=== PATIENT | female | born 1940 | race African-American/Black ===

== ENCOUNTER 2019-10-04 17:58 | Inpatient (IN) | payer MEDICARE, MEDICAID ==
[~2019-10-04] VITALS: Ht 167.6 cm; Wt 94.6 kg
[~2019-10-04 17:58] MED LIST: AGG25C; ALLO100T; ATEN50TA; CAPT25TA5; EZET10TA20; FELO5TAB3; FURO40TA4; OMEP20TA30
[2019-10-04] MEDS ORDERED: SODIUM CHLORIDE 0.9% 1,000 ML IV ONE (18:40)
[2019-10-04] MEDS ORDERED: VANCOMYCIN PER PHARMACY 1,000 MG IV SCH (18:45)
[2019-10-04 19:14] LABS: Basophils # (auto) 0 uL; Basophils % (auto) 0.3 % (0.0-2.0); Eosinophils # (auto) 0 uL; Hematocrit 40.5 % (36.0-46.0); Lymphocytes # (auto) 0.6 uL; Lymphocytes % (auto) 5.7 % (10.0-50.0); Mean Corpuscular Hemoglobin 29.3 pg (28.0-32.0); Mean Corpuscular Hgb Conc. 32.1 g/dL (32.0-36.0); Mean Corpuscular Volume 91.4 fL (80.0-100.0); Monocytes # (auto) 0.5 uL; Monocytes % (auto) 4.9 % (0.0-12.0); Neutrophils # (auto) 8.9 uL; Neutrophils % (auto) 89.1 % (37.0-80.0); Nucleated Red Blood Cells % 0.7 %; Platelet Count (auto) 261 10^3/uL (140-450); Red Blood Cells 4.43 10^6/uL (4.0-5.20); Red Cell Distribution Width 17.1 % (11.8-14.3)
[2019-10-04] MEDS ORDERED: VANCOMYCIN 1GM/250ML 250 ML IV ONE (19:15)
[2019-10-04 19:31] LABS: Albumin 2.1 g/dL (3.4-5.0); Calcium 9.5 mg/dL (8.5-10.1); Potassium 5.1 mmol/L (3.5-5.1)
[2019-10-04 19:34] LABS: Lactic Acid w/Reflex 2.1 mmol/L (0.4-2.0)
[2019-10-04 19:35] LABS: BUN/Creatinine Ratio 19.8; Bilirubin, Total 0.4 mg/dL (0.2-1.0); Total Protein 7.7 g/dL (6.4-8.2)
[2019-10-04 20:40] LABS: INR 1.23 (0.9-1.15)
[2019-10-04 20:41] LABS: Partial Thromboplastin Time 31.1 sec (23.64-32.05)
[2019-10-04 20:56] LABS: Urine Bacteria FEW /hpf (None Seen); Urine Blood 2+ /uL (Negative); Urine Hyaline Cast MANY /lpf (0 - 2); Urine Mucus FEW (None Seen); Urine Specific Gravity 1.023 (1.001-1.035); Urine WBC 215 /hpf (0 - 5); Urine WBC Clumps PRESENT /hpf (None Seen)
[2019-10-04] MEDS ORDERED: cefTRIAXone 1GM/50ML D5W 50 ML IV SCH (21:00)
[2019-10-04] MEDS ORDERED: ENOXAPARIN SOD 60 MG/0.6 ML SYRINGE SC ONE (22:30)
[2019-10-04] MEDS ORDERED: ALBUMIN 5% 250 ML IV ONE (22:30)
[2019-10-04] MEDS ORDERED: ONDANSETRON HCL 4 MG/2 ML VIAL IV PRN (22:30)
[2019-10-04] MEDS ORDERED: ALBUTEROL SULF 2.5 MG/0.5ML(0.5%) NEB SOLN NEB PRN (22:30)
[2019-10-04] MEDS ORDERED: ACETAMINOPHEN 325 MG TAB PO PRN (22:30)
[2019-10-04] MEDS ORDERED: SODIUM CHLORIDE 0.9% 1,000 ML IV SCH (22:30)
[2019-10-04] MEDS ORDERED: MORPHINE SULF INJ 2 MG/ML SYRINGE 1ML IV PRN (22:45)
[2019-10-04] MEDS ORDERED: NITROGLYCERIN 0.4 MG SL TAB SL PRN (22:45)
[2019-10-04 23:19] VITALS: BP 111/72
[2019-10-05] VITALS (7 sets, daily range): BP systolic 94–131; BP diastolic 60–92
[2019-10-05] MEDS ORDERED: PIPERACILLIN-TAZOB 3.375GM 100 ML IV SCH
[2019-10-05 05:24] LABS: Basophils # (auto) 0 uL; Basophils % (auto) 0.1 % (0.0-2.0); Eosinophils # (auto) 0 uL; Eosinophils % (auto) 0.1 % (0.0-7.0); Hematocrit 35.2 % (36.0-46.0); Hemoglobin 11.3 g/dL (12.2-16.2); Lymphocytes # (auto) 0.7 uL; Lymphocytes % (auto) 7.1 % (10.0-50.0); Mean Corpuscular Hemoglobin 29.1 pg (28.0-32.0); Mean Corpuscular Hgb Conc. 32.1 g/dL (32.0-36.0); Mean Corpuscular Volume 90.5 fL (80.0-100.0); Monocytes # (auto) 0.3 uL; Monocytes % (auto) 2.8 % (0.0-12.0); Neutrophils # (auto) 8.6 uL; Neutrophils % (auto) 89.9 % (37.0-80.0); Nucleated Red Blood Cells % 0.7 %; Platelet Count (auto) 212 10^3/uL (140-450); Red Blood Cells 3.89 10^6/uL (4.0-5.20); Red Cell Distribution Width 17.4 % (11.8-14.3); White Blood Cell 9.6 10^3/uL (4.4-10.8)
[2019-10-05 05:48] LABS: BUN/Creatinine Ratio 21.2; Potassium 4.7 mmol/L (3.5-5.1)
[2019-10-05] MEDS: cefTRIAXone 1GM/50ML D5W 50 ML IV SCH (08:58)
[2019-10-05] MEDS ORDERED: FUROSEMIDE 20 MG/2 ML VIAL IV ONE (09:00)
[2019-10-05] MEDS ORDERED: PANTOPRAZOLE 40 MG TAB PO SCH (10:00)
[2019-10-05] MEDS: ENOXAPARIN SOD 100 MG/1 ML SYRINGE SC SCH (10:18)
[2019-10-05] MEDS: AZITHROMYCIN 500MG/ 250ML 250 ML IV SCH (10:18)
[2019-10-05] MEDS ORDERED: PANTOPRAZOLE 40 MG/10 ML VIAL INJ IV SCH (10:45)
[2019-10-05] MEDS ORDERED: VANCOMYCIN 1GM/250ML 250 ML IV ONE (12:00)
[2019-10-05] MEDS: SODIUM CHLORIDE 0.9% 1,000 ML IV SCH (12:53)
[2019-10-05 13:46] LABS: Folate (Folic Acid) 6.98 ng/mL (5.38-24)
[2019-10-05] MEDS ORDERED: FUROSEMIDE 40 MG/4 ML VIAL IV SCH (18:00)
[2019-10-06 05:00] VITALS: BP 112/75
[2019-10-06 06:58] LABS: Basophils # (auto) 0 uL; Basophils % (auto) 0.2 % (0.0-2.0); Eosinophils # (auto) 0.2 uL; Eosinophils % (auto) 2.2 % (0.0-7.0); Hematocrit 33.7 % (36.0-46.0); Hemoglobin 10.9 g/dL (12.2-16.2); Lymphocytes # (auto) 0.5 uL; Lymphocytes % (auto) 4.5 % (10.0-50.0); Mean Corpuscular Hemoglobin 29.5 pg (28.0-32.0); Mean Corpuscular Hgb Conc. 32.3 g/dL (32.0-36.0); Mean Corpuscular Volume 91.5 fL (80.0-100.0); Monocytes # (auto) 0.2 uL; Monocytes % (auto) 2.3 % (0.0-12.0); Neutrophils # (auto) 9.7 uL; Neutrophils % (auto) 90.8 % (37.0-80.0); Nucleated Red Blood Cells % 0.4 %; Platelet Count (auto) 180 10^3/uL (140-450); Red Blood Cells 3.68 10^6/uL (4.0-5.20); Red Cell Distribution Width 17.5 % (11.8-14.3); White Blood Cell 10.7 10^3/uL (4.4-10.8)
[2019-10-06 07:24] LABS: BUN/Creatinine Ratio 25.2; Calcium 8.7 mg/dL (8.5-10.1); Magnesium 2.3 mg/dL (1.6-2.6); Potassium 4.4 mmol/L (3.5-5.1)
[2019-10-06] MEDS: cefTRIAXone 1GM/50ML D5W 50 ML IV SCH (08:48)
[2019-10-06 09:00] VITALS: BP 121/64
[2019-10-06] MEDS: ASPirin-EC 81 mg tab PO SCH (09:47)
[2019-10-06] MEDS: ENOXAPARIN SOD 100 MG/1 ML SYRINGE SC SCH (09:47)
[2019-10-06] MEDS: PANTOPRAZOLE 40 MG/10 ML VIAL INJ IV SCH ×2 (09:47→23:12)
[2019-10-06] MEDS: AZITHROMYCIN 500MG/ 250ML 250 ML IV SCH (09:48)
[2019-10-06] MEDS ORDERED: SENNA 8.6 MG TAB PO ONE (11:45)
[2019-10-06 12:38] VITALS: BP 125/74
[2019-10-06 17:00] VITALS: BP 120/72
[2019-10-06] MEDS: SODIUM CHLORIDE 0.9% 1,000 ML IV SCH (18:37)
[2019-10-06 22:00] VITALS: BP 125/73
[2019-10-06] MEDS ORDERED: VANCOMYCIN 1GM/250ML 250 ML IV ONE (22:52)
[2019-10-06] MEDS ORDERED: VANCOMYCIN 500 MG in D5W 5% 100 ML IV ONE (23:00)
[2019-10-06] MEDS: ATORVASTATIN 20 MG TAB PO SCH (23:13)
[2019-10-06] MEDS: SENNA 8.6 MG TAB PO SCH (23:13)
[2019-10-07] MEDS: SODIUM CHLORIDE 0.9% 1,000 ML IV SCH (04:43)
[2019-10-07 05:00] VITALS: BP 118/71
[2019-10-07 07:27] LABS: Basophils # (auto) 0 uL; Basophils % (auto) 0.4 % (0.0-2.0); Eosinophils # (auto) 0.3 uL; Eosinophils % (auto) 2.4 % (0.0-7.0); Hematocrit 34.5 % (36.0-46.0); Lymphocytes # (auto) 0.9 uL; Lymphocytes % (auto) 8.2 % (10.0-50.0); Mean Corpuscular Hemoglobin 29.3 pg (28.0-32.0); Mean Corpuscular Hgb Conc. 31.9 g/dL (32.0-36.0); Mean Corpuscular Volume 91.8 fL (80.0-100.0); Monocytes # (auto) 0.4 uL; Monocytes % (auto) 3.3 % (0.0-12.0); Neutrophils # (auto) 9.1 uL; Neutrophils % (auto) 85.7 % (37.0-80.0); Platelet Count (auto) 210 10^3/uL (140-450); Red Blood Cells 3.76 10^6/uL (4.0-5.20); Red Cell Distribution Width 17.1 % (11.8-14.3); White Blood Cell 10.7 10^3/uL (4.4-10.8)
[2019-10-07 07:43] LABS: BUN/Creatinine Ratio 28.2; Calcium 8.8 mg/dL (8.5-10.1); Potassium 3.9 mmol/L (3.5-5.1)
[2019-10-07 09:00] VITALS: BP 109/72
[2019-10-07] MEDS: cefTRIAXone 1GM/50ML D5W 50 ML IV SCH (09:42)
[2019-10-07] MEDS: AZITHROMYCIN 500MG/ 250ML 250 ML IV SCH (10:32)
[2019-10-07] MEDS: ASPirin-EC 81 mg tab PO SCH (10:32)
[2019-10-07] MEDS: PANTOPRAZOLE 40 MG/10 ML VIAL INJ IV SCH ×2 (10:32→23:12)
[2019-10-07] MEDS: ENOXAPARIN SOD 100 MG/1 ML SYRINGE SC SCH (10:35)
[2019-10-07 13:00] VITALS: BP 136/82
[2019-10-07] MEDS ORDERED: ALBUMIN 25% 100 ML IV ONE (13:30)
[2019-10-07 17:00] VITALS: BP 109/69
[2019-10-07 23:08] VITALS: BP 114/63
[2019-10-07] MEDS: ATORVASTATIN 20 MG TAB PO SCH (23:12)
[2019-10-07] MEDS: SENNA 8.6 MG TAB PO SCH (23:13)
[2019-10-08] MEDS: SODIUM CHLORIDE 0.9% 1,000 ML IV SCH (00:45)
[2019-10-08 05:26] VITALS: BP 113/58
[2019-10-08 06:06] LABS: Basophils # (auto) 0 uL; Basophils % (auto) 0.2 % (0.0-2.0); Eosinophils # (auto) 0.3 uL; Eosinophils % (auto) 2.6 % (0.0-7.0); Hematocrit 30.4 % (36.0-46.0); Hemoglobin 9.5 g/dL (12.2-16.2); Lymphocytes # (auto) 1.2 uL; Lymphocytes % (auto) 12.4 % (10.0-50.0); Mean Corpuscular Hemoglobin 28.3 pg (28.0-32.0); Mean Corpuscular Hgb Conc. 31.3 g/dL (32.0-36.0); Mean Corpuscular Volume 90.5 fL (80.0-100.0); Monocytes # (auto) 0.5 uL; Neutrophils # (auto) 7.9 uL; Neutrophils % (auto) 79.8 % (37.0-80.0); Nucleated Red Blood Cells % 0.7 %; Platelet Count (auto) 195 10^3/uL (140-450); Red Blood Cells 3.36 10^6/uL (4.0-5.20); Red Cell Distribution Width 17.1 % (11.8-14.3); White Blood Cell 9.9 10^3/uL (4.4-10.8)
[2019-10-08 06:17] LABS: Potassium 3.3 mmol/L (3.5-5.1)
[2019-10-08 06:26] LABS: BUN/Creatinine Ratio 32.3; Calcium 8.8 mg/dL (8.5-10.1)
[2019-10-08] MEDS ORDERED: SOD CHL 0.45% 1,000 ML IV SCH (08:45)
[2019-10-08] MEDS ORDERED: POTASSIUM CHLORIDE 40 MEQ, LIDOCAINE 1% (LOCAL ANESTH.) 4 ML in SODIUM CHL 0.9% 100 ML IV ONE (08:45)
[2019-10-08 09:00] VITALS: BP 112/67
[2019-10-08] MEDS: ALBUMIN 25% 100 ML IV SCH ×2 (09:11→10:59)
[2019-10-08] MEDS: ASPirin-EC 81 mg tab PO SCH (10:00)
[2019-10-08] MEDS: cefTRIAXone 1GM/50ML D5W 50 ML IV SCH (10:15)
[2019-10-08] MEDS: PANTOPRAZOLE 40 MG/10 ML VIAL INJ IV SCH ×2 (10:16→23:09)
[2019-10-08] MEDS: ENOXAPARIN SOD 100 MG/1 ML SYRINGE SC SCH (10:17)
[2019-10-08] MEDS: POTASSIUM CHLORIDE 10 MEQ in SOD CHL 0.45% 1,000 ML IV SCH ×2 (11:22→23:09)
[2019-10-08] MEDS: AZITHROMYCIN 500MG/ 250ML 250 ML IV SCH (12:29)
[2019-10-08 13:00] VITALS: BP 113/58
[2019-10-08 17:00] VITALS: BP 111/67
[2019-10-08 22:33] VITALS: BP 119/65
[2019-10-08] MEDS: ATORVASTATIN 20 MG TAB PO SCH (23:09)
[2019-10-08] MEDS: SENNA 8.6 MG TAB PO SCH (23:09)
[2019-10-09 05:31] LABS: Basophils # (auto) 0 uL; Basophils % (auto) 0.2 % (0.0-2.0); Eosinophils # (auto) 0.3 uL; Eosinophils % (auto) 2.9 % (0.0-7.0); Hemoglobin 9.2 g/dL (12.2-16.2); Lymphocytes # (auto) 1.2 uL; Lymphocytes % (auto) 10.9 % (10.0-50.0); Mean Corpuscular Hemoglobin 28.8 pg (28.0-32.0); Mean Corpuscular Hgb Conc. 30.6 g/dL (32.0-36.0); Mean Corpuscular Volume 94.3 fL (80.0-100.0); Monocytes # (auto) 0.6 uL; Monocytes % (auto) 5.3 % (0.0-12.0); Neutrophils # (auto) 8.6 uL; Neutrophils % (auto) 80.7 % (37.0-80.0); Nucleated Red Blood Cells % 0.4 %; Platelet Count (auto) 210 10^3/uL (140-450); Red Blood Cells 3.18 10^6/uL (4.0-5.20); Red Cell Distribution Width 17.7 % (11.8-14.3); White Blood Cell 10.7 10^3/uL (4.4-10.8)
[2019-10-09 05:34] LABS: Potassium 3.8 mmol/L (3.5-5.1)
[2019-10-09 05:41] VITALS: BP 138/76
[2019-10-09 05:42] LABS: Albumin 2.6 g/dL (3.4-5.0); BUN/Creatinine Ratio 30.6; Bilirubin, Total 0.4 mg/dL (0.2-1.0); Calcium 8.7 mg/dL (8.5-10.1); Total Protein 6.6 g/dL (6.4-8.2)
[2019-10-09 08:00] VITALS: BP 133/62
[2019-10-09] MEDS: POTASSIUM CHLORIDE 10 MEQ in SOD CHL 0.45% 1,000 ML IV SCH (08:20)
[2019-10-09 09:00] VITALS: BP 135/78
[2019-10-09] MEDS: ENOXAPARIN SOD 100 MG/1 ML SYRINGE SC SCH (10:09)
[2019-10-09] MEDS: PANTOPRAZOLE 40 MG/10 ML VIAL INJ IV SCH ×2 (10:09→21:27)
[2019-10-09] MEDS: ASPirin-EC 81 mg tab PO SCH (10:09)
[2019-10-09] MEDS: cefTRIAXone 1GM/50ML D5W 50 ML IV SCH (10:09)
[2019-10-09 13:00] VITALS: BP 133/62
[2019-10-09] MEDS ORDERED: POTASSIUM CHLORIDE 10 MEQ in SOD CHL 0.45% 1,000 ML IV SCH (15:00)
[2019-10-09 17:00] VITALS: BP 127/65
[2019-10-09] MEDS ORDERED: FUROSEMIDE 40 MG/4 ML VIAL IV ONE (18:15)
[2019-10-09] MEDS: ATORVASTATIN 20 MG TAB PO SCH (21:27)
[2019-10-09] MEDS: SENNA 8.6 MG TAB PO SCH (21:28)
[2019-10-10] VITALS (7 sets, daily range): BP systolic 105–145; BP diastolic 56–79
[2019-10-10 07:02] LABS: Basophils # (auto) 0.1 uL; Basophils % (auto) 0.5 % (0.0-2.0); Eosinophils # (auto) 0.4 uL; Eosinophils % (auto) 3.7 % (0.0-7.0); Hematocrit 29.2 % (36.0-46.0); Hemoglobin 9.2 g/dL (12.2-16.2); Lymphocytes # (auto) 1.1 uL; Lymphocytes % (auto) 9.7 % (10.0-50.0); Mean Corpuscular Hemoglobin 28.8 pg (28.0-32.0); Mean Corpuscular Hgb Conc. 31.6 g/dL (32.0-36.0); Monocytes # (auto) 0.3 uL; Neutrophils # (auto) 9.5 uL; Neutrophils % (auto) 83.1 % (37.0-80.0); Nucleated Red Blood Cells % 0.2 %; Platelet Count (auto) 230 10^3/uL (140-450); Red Cell Distribution Width 16.9 % (11.8-14.3); White Blood Cell 11.4 10^3/uL (4.4-10.8)
[2019-10-10 07:07] LABS: BUN/Creatinine Ratio 30.8; Calcium 8.6 mg/dL (8.5-10.1); Potassium 3.6 mmol/L (3.5-5.1)
[2019-10-10] MEDS: PANTOPRAZOLE 40 MG/10 ML VIAL INJ IV SCH ×2 (09:14→22:57)
[2019-10-10] MEDS: ENOXAPARIN SOD 100 MG/1 ML SYRINGE SC SCH ×2 (09:14→22:57)
[2019-10-10] MEDS: ASPirin-EC 81 mg tab PO SCH (09:14)
[2019-10-10] MEDS: cefTRIAXone 1GM/50ML D5W 50 ML IV SCH (09:14)
[2019-10-10] MEDS ORDERED: FUROSEMIDE 40 MG/4 ML VIAL IV ONE (10:00)
[2019-10-10] MEDS: SENNA 8.6 MG TAB PO SCH (22:00)
[2019-10-10] MEDS: ATORVASTATIN 20 MG TAB PO SCH (22:59)
[2019-10-11 05:00] VITALS: BP 105/52
[2019-10-11 06:46] LABS: BUN/Creatinine Ratio 31.3; Basophils # (auto) 0 uL; Basophils % (auto) 0.2 % (0.0-2.0); Calcium 8.9 mg/dL (8.5-10.1); Eosinophils # (auto) 0.3 uL; Eosinophils % (auto) 2.1 % (0.0-7.0); Hematocrit 29.2 % (36.0-46.0); Hemoglobin 9.3 g/dL (12.2-16.2); Lymphocytes # (auto) 0.9 uL; Lymphocytes % (auto) 6.9 % (10.0-50.0); Mean Corpuscular Hemoglobin 28.8 pg (28.0-32.0); Mean Corpuscular Volume 90.1 fL (80.0-100.0); Monocytes # (auto) 0.4 uL; Monocytes % (auto) 2.7 % (0.0-12.0); Neutrophils # (auto) 12.1 uL; Neutrophils % (auto) 88.1 % (37.0-80.0); Nucleated Red Blood Cells % 0.1 %; Platelet Count (auto) 272 10^3/uL (140-450); Potassium 3.6 mmol/L (3.5-5.1); Red Blood Cells 3.24 10^6/uL (4.0-5.20); Red Cell Distribution Width 17.6 % (11.8-14.3); White Blood Cell 13.7 10^3/uL (4.4-10.8)
[2019-10-11 09:02] VITALS: BP 129/72
[2019-10-11] MEDS ORDERED: D5W 5% 1,000 ML IV ONE (09:30)
[2019-10-11] MEDS: PANTOPRAZOLE 40 MG/10 ML VIAL INJ IV SCH ×2 (10:30→21:16)
[2019-10-11] MEDS: ENOXAPARIN SOD 100 MG/1 ML SYRINGE SC SCH ×2 (10:31→21:16)
[2019-10-11] MEDS: ASPirin-EC 81 mg tab PO SCH (10:31)
[2019-10-11] MEDS: cefTRIAXone 1GM/50ML D5W 50 ML IV SCH ×2 (10:31→17:56)
[2019-10-11 12:26] LABS: INR 1.37 (0.9-1.15); Partial Thromboplastin Time 38.3 sec (23.64-32.05)
[2019-10-11 12:54] VITALS: BP 126/73
[2019-10-11] MEDS ORDERED: LIDOCAINE 1% (LOCAL ANESTH.) PF 5ml SDV ID ONE (15:00)
[2019-10-11 16:45] VITALS: BP 135/72
[2019-10-11] MEDS: SODIUM CHLOR 0.9% PF (SALINE LOCK) 10ML VIAL/SYR IV SCH (21:16)
[2019-10-11] MEDS: SENNA 8.6 MG TAB PO SCH (21:16)
[2019-10-11] MEDS: ATORVASTATIN 20 MG TAB PO SCH (21:17)
[2019-10-11 22:00] VITALS: BP 130/79
[2019-10-12 05:17] VITALS: BP 123/70
[2019-10-12 08:05] LABS: Eosinophils # (auto) 0.2 uL; Hemoglobin 9.3 g/dL (12.2-16.2); Neutrophils # (auto) 12.4 uL; Nucleated Red Blood Cells % 0.2 %; White Blood Cell 14.1 10^3/uL (4.4-10.8)
[2019-10-12 08:07] LABS: Basophils # (auto) 0.1 uL; Basophils % (auto) 0.5 % (0.0-2.0); Eosinophils % (auto) 1.2 % (0.0-7.0); Hematocrit 30.5 % (36.0-46.0); Mean Corpuscular Hemoglobin 27.8 pg (28.0-32.0); Mean Corpuscular Hgb Conc. 30.5 g/dL (32.0-36.0); Monocytes # (auto) 0.4 uL; Monocytes % (auto) 2.9 % (0.0-12.0); Neutrophils % (auto) 88.4 % (37.0-80.0); Platelet Count (auto) 303 10^3/uL (140-450); Red Blood Cells 3.35 10^6/uL (4.0-5.20); Red Cell Distribution Width 17.6 % (11.8-14.3)
[2019-10-12 08:18] LABS: BUN/Creatinine Ratio 27.9; Potassium 3.5 mmol/L (3.5-5.1)
[2019-10-12 09:00] VITALS: BP 139/73
[2019-10-12] MEDS: PANTOPRAZOLE 40 MG/10 ML VIAL INJ IV SCH ×2 (09:44→22:27)
[2019-10-12] MEDS: cefTRIAXone 1GM/50ML D5W 50 ML IV SCH (09:44)
[2019-10-12] MEDS: SODIUM CHLOR 0.9% PF (SALINE LOCK) 10ML VIAL/SYR IV SCH ×2 (09:44→22:27)
[2019-10-12] MEDS: ASPirin-EC 81 mg tab PO SCH (09:45)
[2019-10-12] MEDS: ENOXAPARIN SOD 100 MG/1 ML SYRINGE SC SCH ×2 (09:45→22:27)
[2019-10-12] MEDS: AZITHROMYCIN 500MG/ 250ML 250 ML IV SCH (10:58)
[2019-10-12] MEDS: D5W 5% 1,000 ML IV SCH ×2 (10:59→17:37)
[2019-10-12 13:00] VITALS: BP 126/78
[2019-10-12] MEDS: LINEZOLID 600MG/300ML 300 ML IV SCH ×2 (13:44→22:27)
[2019-10-12 17:00] VITALS: BP 140/92
[2019-10-12 21:40] VITALS: BP 144/99
[2019-10-12] MEDS: SENNA 8.6 MG TAB PO SCH (22:00)
[2019-10-12] MEDS: ATORVASTATIN 20 MG TAB PO SCH (22:00)
[2019-10-13] VITALS (7 sets, daily range): BP systolic 117–152; BP diastolic 64–99
[2019-10-13] MEDS: D5W 5% 1,000 ML IV SCH ×2 (01:30→10:12)
[2019-10-13] MEDS ORDERED: LORazepam 2MG/ML-1ML VIAL IV PRN (01:45)
[2019-10-13 01:55] LABS: Hemoglobin 10.4 g/dL (12.2-16.2)
[2019-10-13 01:57] LABS: Hematocrit 33.1 % (36.0-46.0); Mean Corpuscular Hemoglobin 28.4 pg (28.0-32.0); Mean Corpuscular Hgb Conc. 31.6 g/dL (32.0-36.0); Platelet Count (auto) 326 10^3/uL (140-450); Red Blood Cells 3.68 10^6/uL (4.0-5.20); Red Cell Distribution Width 17.7 % (11.8-14.3); White Blood Cell 11.2 10^3/uL (4.4-10.8)
[2019-10-13 02:15] LABS: Calcium 8.3 mg/dL (8.5-10.1); Potassium 3.7 mmol/L (3.5-5.1)
[2019-10-13 02:18] LABS: BUN/Creatinine Ratio 26.2
[2019-10-13] MEDS: ALBUTEROL SULF 2.5 MG/0.5ML(0.5%) NEB SOLN NEB PRN (02:19)
[2019-10-13] MEDS: IPRATROPIUM BROM 0.5 MG/2.5ML INH SOL NEB PRN (02:20)
[2019-10-13 02:48] LABS: Band Neutrophils % (manual) 0; Basophils % (manual) 0 (0.0-2.0); Blast Cells 0; Eosinophils % (manual) 0 (0-7); Metamyelocytes % 0; Myelocytes % 0; Promyelocytes % 0; Reactive Lymphocytes 0
[2019-10-13 04:12] LABS: Lymphocytes % (manual) 12 (10.0-50.0); Monocytes % (manual) 2 (0-12)
[2019-10-13] MEDS ORDERED: IPRATROPIUM BROM 0.5 MG/2.5ML INH SOL NEB SCH (06:00)
[2019-10-13] MEDS: cefTRIAXone 1GM/50ML D5W 50 ML IV SCH (09:17)
[2019-10-13] MEDS: ASPirin-EC 81 mg tab PO SCH (10:00)
[2019-10-13] MEDS: PANTOPRAZOLE 40 MG/10 ML VIAL INJ IV SCH ×2 (10:13→23:07)
[2019-10-13] MEDS: AZITHROMYCIN 500MG/ 250ML 250 ML IV SCH (10:13)
[2019-10-13] MEDS: ENOXAPARIN SOD 100 MG/1 ML SYRINGE SC SCH ×2 (10:13→23:08)
[2019-10-13] MEDS: SODIUM CHLOR 0.9% PF (SALINE LOCK) 10ML VIAL/SYR IV SCH ×2 (10:13→23:07)
[2019-10-13] MEDS: LINEZOLID 600MG/300ML 300 ML IV SCH ×2 (11:59→23:08)
[2019-10-13] MEDS ORDERED: FUROSEMIDE 40 MG/4 ML VIAL IV ONE (12:00)
[2019-10-13] MEDS ORDERED: LORazepam 2MG/ML-1ML VIAL IV ONE (18:00)
[2019-10-13] MEDS: SENNA 8.6 MG TAB PO SCH (22:00)
[2019-10-13] MEDS: ATORVASTATIN 20 MG TAB PO SCH (22:00)
[2019-10-14] VITALS (7 sets, daily range): BP systolic 107–145; BP diastolic 53–85
[2019-10-14] MEDS: LORazepam 2MG/ML-1ML VIAL IV PRN ×2 (06:12→13:19)
[2019-10-14] MEDS: PANTOPRAZOLE 40 MG/10 ML VIAL INJ IV SCH ×2 (09:15→22:28)
[2019-10-14] MEDS: cefTRIAXone 1GM/50ML D5W 50 ML IV SCH (09:16)
[2019-10-14] MEDS: ASPirin-EC 81 mg tab PO SCH (09:17)
[2019-10-14] MEDS: ENOXAPARIN SOD 100 MG/1 ML SYRINGE SC SCH ×2 (09:17→22:29)
[2019-10-14] MEDS: SODIUM CHLOR 0.9% PF (SALINE LOCK) 10ML VIAL/SYR IV SCH ×2 (09:18→22:28)
[2019-10-14] MEDS ORDERED: FUROSEMIDE 40 MG/4 ML VIAL IV SCH (10:00)
[2019-10-14] MEDS: AZITHROMYCIN 500MG/ 250ML 250 ML IV SCH (10:18)
[2019-10-14] MEDS ORDERED: FUROSEMIDE 20 MG/2 ML VIAL IV ONE (11:00)
[2019-10-14] MEDS ORDERED: BUMETANIDE 2.5mg/10ml (0.25 mg/ml) INJ IV ONE (11:15)
[2019-10-14] MEDS ORDERED: MEROPENEM 1GM IVPB 100 ML IV SCH (12:00)
[2019-10-14 12:12] LABS: Basophils # (auto) 0.1 uL; Basophils % (auto) 0.6 % (0.0-2.0); Eosinophils # (auto) 0.2 uL; Eosinophils % (auto) 1.7 % (0.0-7.0); Hematocrit 29.8 % (36.0-46.0); Hemoglobin 9.5 g/dL (12.2-16.2); Lymphocytes # (auto) 1.2 uL; Lymphocytes % (auto) 12.6 % (10.0-50.0); Mean Corpuscular Hemoglobin 28.6 pg (28.0-32.0); Mean Corpuscular Hgb Conc. 31.8 g/dL (32.0-36.0); Monocytes # (auto) 0.6 uL; Monocytes % (auto) 6.4 % (0.0-12.0); Neutrophils # (auto) 7.6 uL; Neutrophils % (auto) 78.7 % (37.0-80.0); Nucleated Red Blood Cells % 0.3 %; Platelet Count (auto) 321 10^3/uL (140-450); Red Blood Cells 3.31 10^6/uL (4.0-5.20); Red Cell Distribution Width 17.3 % (11.8-14.3); White Blood Cell 9.7 10^3/uL (4.4-10.8)
[2019-10-14 12:26] LABS: Albumin 2.2 g/dL (3.4-5.0); Calcium 8.5 mg/dL (8.5-10.1); Potassium 3.3 mmol/L (3.5-5.1)
[2019-10-14 12:29] LABS: BUN/Creatinine Ratio 20.1; Bilirubin, Total 0.3 mg/dL (0.2-1.0); Total Protein 7.6 g/dL (6.4-8.2)
[2019-10-14] MEDS: LINEZOLID 600MG/300ML 300 ML IV SCH ×2 (13:19→23:32)
[2019-10-14] MEDS ORDERED: PPN PER PHARMACY 0 ML IV SCH (13:30)
[2019-10-14 14:04] LABS: Phosphorus 3.2 mg/dL (2.5-4.90)
[2019-10-14] MEDS ORDERED: TPN PER PHARMACY 0 ML IV SCH (14:15)
[2019-10-14] MEDS: POTASSIUM CHL 20MEQ/100ML 100 ML IV SCH ×2 (15:10→17:31)
[2019-10-14] MEDS: MEROPENEM 1GM IVPB 100 ML IV SCH (16:35)
[2019-10-14] MEDS ORDERED: FUROSEMIDE 100 MG/10ML VIAL IV SCH (18:00)
[2019-10-14] MEDS ORDERED: PPN PER PHARMACY IV ONE ×5 (20:00)
[2019-10-14] MEDS: ATORVASTATIN 20 MG TAB PO SCH (22:00)
[2019-10-14] MEDS: SENNA 8.6 MG TAB PO SCH (22:00)
[2019-10-14] MEDS: ACCU-CHEK COMFORT CURVE STRIP VI SCH (23:32)
[2019-10-14] MEDS: InsuLIN REG 1unit/0.01ml Soln (100units/ml) SC SCH (23:34)
[2019-10-15] VITALS (7 sets, daily range): BP systolic 103–153; BP diastolic 37–78
[2019-10-15] MEDS ORDERED: DEXTROSE (50%) 50ML SYRG IV SCH
[2019-10-15] MEDS: LORazepam 2MG/ML-1ML VIAL IV PRN ×3 (02:00→21:02)
[2019-10-15] MEDS: MEROPENEM 1GM IVPB 100 ML IV SCH (03:56)
[2019-10-15] MEDS: InsuLIN REG 1unit/0.01ml Soln (100units/ml) SC SCH ×3 (06:00→18:00)
[2019-10-15 06:07] LABS: Basophils # (auto) 0.1 uL; Basophils % (auto) 0.9 % (0.0-2.0); Eosinophils # (auto) 0.3 uL; Eosinophils % (auto) 2.9 % (0.0-7.0); Hematocrit 30.9 % (36.0-46.0); Hemoglobin 9.7 g/dL (12.2-16.2); Lymphocytes # (auto) 1.3 uL; Lymphocytes % (auto) 14.2 % (10.0-50.0); Mean Corpuscular Hemoglobin 28.6 pg (28.0-32.0); Mean Corpuscular Hgb Conc. 31.5 g/dL (32.0-36.0); Mean Corpuscular Volume 90.9 fL (80.0-100.0); Monocytes # (auto) 0.6 uL; Monocytes % (auto) 6.9 % (0.0-12.0); Neutrophils # (auto) 6.6 uL; Neutrophils % (auto) 75.1 % (37.0-80.0); Nucleated Red Blood Cells % 0.3 %; Platelet Count (auto) 291 10^3/uL (140-450); Red Cell Distribution Width 17.4 % (11.8-14.3); White Blood Cell 8.8 10^3/uL (4.4-10.8)
[2019-10-15] MEDS: ACCU-CHEK COMFORT CURVE STRIP VI SCH ×3 (06:12→18:09)
[2019-10-15 06:38] LABS: Calcium 8.4 mg/dL (8.5-10.1); Magnesium 1.7 mg/dL (1.6-2.6); Potassium 3.4 mmol/L (3.5-5.1)
[2019-10-15 06:46] LABS: BUN/Creatinine Ratio 21.3; Bilirubin, Total 0.4 mg/dL (0.2-1.0); Phosphorus 2.6 mg/dL (2.5-4.90); Total Protein 7.2 g/dL (6.4-8.2)
[2019-10-15] MEDS: ALBUTEROL SULF 2.5 MG/0.5ML(0.5%) NEB SOLN NEB PRN ×2 (07:13→11:52)
[2019-10-15] MEDS: IPRATROPIUM BROM 0.5 MG/2.5ML INH SOL NEB PRN ×2 (07:13→11:52)
[2019-10-15] MEDS ORDERED: POTASSIUM PHOSPHATE 26.4 MEQ in SODIUM CHL 0.9% 100 ML IV ONE (09:15)
[2019-10-15] MEDS ORDERED: MAGNESIUM SULFATE 1GM/100ML 100 ML IV ONE (09:15)
[2019-10-15] MEDS: ASPirin-EC 81 mg tab PO SCH (10:00)
[2019-10-15] MEDS ORDERED: BUMETANIDE 2.5mg/10ml (0.25 mg/ml) INJ IV SCH (10:00)
[2019-10-15] MEDS: SODIUM CHLOR 0.9% PF (SALINE LOCK) 10ML VIAL/SYR IV SCH ×2 (10:00→22:33)
[2019-10-15] MEDS: ENOXAPARIN SOD 100 MG/1 ML SYRINGE SC SCH ×2 (11:11→22:34)
[2019-10-15] MEDS: PANTOPRAZOLE 40 MG/10 ML VIAL INJ IV SCH ×2 (11:11→22:33)
[2019-10-15] MEDS: LINEZOLID 600MG/300ML 300 ML IV SCH (13:02)
[2019-10-15] MEDS ORDERED: MEROPENEM 1GM IVPB 100 ML IV SCH (18:00)
[2019-10-15] MEDS ORDERED: TPN PER PHARMACY IV NR ×9 (20:00)
[2019-10-15] MEDS: SENNA 8.6 MG TAB PO SCH ×2 (22:34→22:37)
[2019-10-15] MEDS: ATORVASTATIN 20 MG TAB PO SCH ×2 (22:34→22:37)
[2019-10-16] MEDS: ACCU-CHEK COMFORT CURVE STRIP VI SCH (00:37)
== END 2019-10-16 01:03 | disposition expired | DRG 871 ==
LOC: EDBD 17:58 → ER 17:58 → TELE-CENTR 17:59
PROVIDERS: ADMIT Nurse Practitioner; ATTEND Internal Medicine
PROC: 02HV33Z Insertion of Infusion Device into Superior Vena Cava, Percutaneous Approach (ICD-10-PCS; 2019-10-11)
PROC: 5A09457 Assistance with Respiratory Ventilation, 24-96 Consecutive Hours, Continuous Positive Airway Pressure (ICD-10-PCS; 2019-10-13)
PROC: 5A12012 Performance of Cardiac Output, Single, Manual (ICD-10-PCS; principal; 2019-10-16)
DX: A41.9 Sepsis, unspecified organism (principal); J18.9 Pneumonia, unspecified organism; J96.20 Acute and chronic respiratory failure, unspecified whether with hypoxia or hypercapnia; G93.41 Metabolic encephalopathy; N17.0 Acute kidney failure with tubular necrosis; I21.A1 Myocardial infarction type 2; I26.99 Other pulmonary embolism without acute cor pulmonale; J96.21 Acute and chronic respiratory failure with hypoxia; N39.0 Urinary tract infection, site not specified; E87.0 Hyperosmolality and hypernatremia; J44.0 Chronic obstructive pulmonary disease with (acute) lower respiratory infection; I13.0 Hypertensive heart and chronic kidney disease with heart failure and stage 1 through stage 4 chronic kidney disease, or unspecified chronic kidney disease; I50.32 Chronic diastolic (congestive) heart failure; N18.4 Chronic kidney disease, stage 4 (severe); R65.20 Severe sepsis without septic shock; I50.9 Heart failure, unspecified; L89.90 Pressure ulcer of unspecified site, unspecified stage; E66.9 Obesity, unspecified; D64.9 Anemia, unspecified; I46.9 Cardiac arrest, cause unspecified; L89.109 Pressure ulcer of unspecified part of back, unspecified stage; E11.22 Type 2 diabetes mellitus with diabetic chronic kidney disease; Z88.0 Allergy status to penicillin; Z88.5 Allergy status to narcotic agent; Z74.01 Bed confinement status; Z79.4 Long term (current) use of insulin; Z86.73 Personal history of transient ischemic attack (TIA), and cerebral infarction without residual deficits
CPT/HCPCS: 36415; 36569; 36600; 70450; 71045; 76775; 78582; 80048; 80053; 80202; 81001; 82040; 82270; 82553; 82607; 82746; 82805; 82962; 83036; 83605; 83735; 83880; 84100; 84478; 84484; 85007; 85025; 85027; 85379; 85384; 85610; 85730; 87040; 87077; 87081; 87086; 87088; 87186; 87804; 92507; 92610; 92950; 93306; 93970; 94640; 94660; 96365; 96367; 96372; 99291; C9113; G0378; J0696; J2001; J2185; J3480; J7042; J7060; P9047